=== PATIENT | male | born 1985 | race Caucasian/White ===

== ENCOUNTER 2020-06-01 15:38 | Emergency (ER) | payer OTHER, MEDICAID ==
[~2020-06-01] VITALS: Ht 167.6 cm; Wt 90.7 kg
[2020-06-01] MEDS: KETOROLAC TROMETHAMINE INJ 30 MG/ML VIAL IV ONE (16:39)
[2020-06-01] MEDS ORDERED: CYCLOBENZAPRINE 10 MG TABLET ONE (16:40)
[2020-06-01] MEDS ORDERED: DEXAMETHASONE SOD PHOSPHATE 10 MG/ML VIAL ONE (16:40)
[2020-06-01] MEDS ORDERED: ACETAMINOPHEN ES 500 MG TABLET ONE (16:41)
[2020-06-01] MEDS: CYCLOBENZAPRINE 10 MG TABLET PO ONE (16:46)
[2020-06-01] MEDS: ACETAMINOPHEN 325 MG TABLET PO ONE (16:46)
[2020-06-01] MEDS: DEXAMETHASONE SOD PHOSPHATE 10 MG/ML VIAL IV ONE (16:46)
--- NOTE | 2020-06-01 17:27 | NUR ---
Patient a/ox4,breathing even and unlabored, able to ambulate with steady gait. No distress noted. Patient discharged to home in stable condition. Written and verbal after care instructions given. Patient verbalizes understanding of instruction.IV removed. Catheter intact and site benign. Pressure and 4x4 applied to site. No bleeding noted.
[2020-06-01 17:32] VITALS: BP 136/80
== END 2020-06-01 17:33 | disposition home or self-care (01) ==
LOC: ER 15:50
DX: S39.012A Strain of muscle, fascia and tendon of lower back, initial encounter (principal); G89.29 Other chronic pain; X58.XXXA Exposure to other specified factors, initial encounter; Y93.89 Activity, other specified; Y92.89 Other specified places as the place of occurrence of the external cause; Y99.0 Civilian activity done for income or pay
CPT/HCPCS: 96374; 99283; J1100